=== PATIENT | male | born 1955 | race African-American/Black ===

== ENCOUNTER 2023-09-25 08:06 | Emergency (ER) | payer OTHER ==
[2023-09-25 08:20] VITALS: BP 108/74; PULSE 75; RESP 18; TEMP 98.7; BMI 17.8
[2023-09-25 09:18] LABS: HEMOGLOBIN 8.8 GM/dL (11.7-16.9); MCH 23.8 pg (25.7-33.7); MCHC 31.5 g/dl (32.0-35.9); MEAN CELL VOLUME 75.4 fl (80-96); PLATELET COUNT 410 10^3/uL (134-434); RBC 3.72 M/mm3 (4.00-5.60); RDW 22.3 % (11.9-15.9)
[2023-09-25 09:20] LABS: MEAN PLT VOLUME 5.8 fl (7.5-11.1)
[2023-09-25 09:48] LABS: POTASSIUM 3.7 mmol/L (3.5-5.1)
[2023-09-25 09:50] LABS: ALBUMIN 3.1 g/dl (3.4-5.0); BLOOD UREA NITROGEN 16.5 mg/dL (7-18); CALCIUM 8.5 mg/dL (8.5-10.1)
[2023-09-25 09:53] LABS: CREATININE 0.9 mg/dL (0.55-1.3)
[2023-09-25 09:55] LABS: BILIRUBIN,TOTAL 0.5 mg/dL (0.2-1); TOT PROT 5.9 g/dl (6.4-8.2)
[2023-09-25] MEDS ORDERED: MAG HYDROX/AL HYDROX/SIMETH 30 ML UNIT-DOSE CUP ONE (09:56)
[2023-09-25] MEDS: MAG HYDROX/AL HYDROX/SIMETH 30 ML UNIT-DOSE CUP PO ONE (09:58)
== END 2023-09-25 10:43 | disposition short-term general hospital (02) ==
LOC: JER 08:06
DX: R10.13 Epigastric pain (principal); F10.29 Alcohol dependence with unspecified alcohol-induced disorder
CPT/HCPCS: 36415; 80053; 84484; 85027; 93005; 93010; 99285-25

== ENCOUNTER 2023-09-25 12:07 | Inpatient (IN) | payer OTHER ==
[2023-09-25 12:57] VITALS: BMI 17.8
[2023-09-25] MEDS ORDERED: MAGNESIUM HYDROX 2400MG/30ML ORAL SUSPENSION 30 ML CUP PO PRN (14:27)
[2023-09-25] MEDS ORDERED: BENZOCAINE/MENTHOL (CHLORASEPTIC ) LOZENGE MM PRN (14:27)
[2023-09-25] MEDS ORDERED: LOPERAMIDE HCL 2 MG CAPSULE PO PRN (14:27)
[2023-09-25] MEDS ORDERED: POLYETHYLENE GLYCOL (HEALTHYLAX) 3350 17 GM PACKET PO PRN (14:27)
[2023-09-25] MEDS ORDERED: guaiFENesin 600 MG TABLET.ER (FP) PO PRN (14:27)
[2023-09-25] MEDS ORDERED: NALOXONE HCL (KLOXXADO) 8 MG SPRAY NS PRN (14:27)
[2023-09-25] MEDS ORDERED: ACETAMINOPHEN 325 MG TABLET (FP) PO PRN (14:27)
[2023-09-25] MEDS ORDERED: BENZONATATE 200 MG CAPSULE PO PRN (14:27)
[2023-09-25] MEDS ORDERED: MAG HYDROX/AL HYDROX/SIMETH 30 ML UNIT-DOSE CUP PO PRN (14:27)
[2023-09-25] MEDS ORDERED: NALOXONE HCL 0.4 MG/ML VIAL IM PRN (14:27)
[2023-09-25] MEDS ORDERED: NICOTINE POLACRILEX 2 MG LOZENGE BC PRN (14:27)
[2023-09-25] MEDS ORDERED: IBUPROFEN 400 MG TABLET (FP) PO PRN (14:27)
[2023-09-25] MEDS ORDERED: MECLIZINE HCL 25 MG TABLET (FP) PO PRN (17:05)
[2023-09-25] MEDS ORDERED: NITROGLYCERIN SUBLINGUAL 1/150 0.4 MG TAB SL PRN (17:05)
[2023-09-25] MEDS ORDERED: ALBUTEROL SO4 HFA INHALER IH PRN (17:05)
[2023-09-25] MEDS ORDERED: PANTOPRAZOLE 20 MG TABLET PO SCH (22:00)
[2023-09-25 22:14] LABS: EPI CELLS 5 /uL (0-25.1); HYALINE CASTS 37 /uL (0-3.1); URINE APPEARANCE CLOUDY; URINE BACTERIA >9,000 /uL (0-1359); URINE BILIRUBIN NEGATIVE (NEGATIVE); URINE COLOR YELLOW; URINE GLUCOSE (UA) NEGATIVE (NEGATIVE); URINE KETONE NEGATIVE (NEGATIVE); URINE LEUK ESTERASE 3+ (NEGATIVE); URINE NITRITE NEGATIVE (NEGATIVE); URINE PROTEIN TRACE (NEGATIVE); URINE RBC 11 /uL (0-23.9); URINE WBC 703 /uL (0-25.8)
[2023-09-25] MEDS: MELATONIN 5 MG TABLETS PO SCH (22:15)
[2023-09-25] MEDS: THIAMINE 100 MG TABLET PO SCH (22:15)
[2023-09-25] MEDS: PANTOPRAZOLE 20 MG TABLET PO SCH (22:15)
[2023-09-25 23:47] LABS: URINE CRYSTALS MODERATE /hpf
[2023-09-26] MEDS: FOLIC ACID T PO SCH (06:08)
[2023-09-26] MEDS: FERROUS SULFATE PO SCH (06:08)
[2023-09-26] MEDS: TAMSULOSIN HCL 0.4 MG CAP PO SCH (06:08)
[2023-09-26] MEDS: CHOLECALCIFEROL (VIT D3) 1,000 UNIT (25 MCG) TABLET PO SCH (06:08)
[2023-09-26] MEDS: [UNRECOGNIZED DRUG - OTHER] PO SCH (06:08)
[2023-09-26] MEDS: PRENATAL VITAMINS W/ FOLIC ACID TABLET (FP) PO SCH (09:40)
[2023-09-26] MEDS ORDERED: TAMSULOSIN HCL 0.4 MG CAP PO SCH (10:00)
[2023-09-26] MEDS ORDERED: CHOLECALCIFEROL (VIT D3) 1,000 UNIT (25 MCG) TABLET PO SCH (10:00)
[2023-09-26] MEDS ORDERED: FERROUS SULFATE PO SCH (10:00)
[2023-09-26] MEDS ORDERED: [UNRECOGNIZED DRUG - OTHER] PO SCH (10:00)
[2023-09-26] MEDS ORDERED: FOLIC ACID PO SCH (10:00)
[2023-09-26 11:50] LABS: HEMATOCRIT 26.9 % (35.4-49); HEMOGLOBIN 8.3 GM/dL (11.7-16.9); MCH 23.4 pg (25.7-33.7); MCHC 30.8 g/dl (32.0-35.9); MEAN PLT VOLUME 6.7 fl (7.5-11.1); PLATELET COUNT 417 10^3/uL (134-434); RBC 3.54 M/mm3 (4.00-5.60); WHITE BLOOD COUNT 7.1 K/mm3 (4.0-10.0)
[2023-09-26 11:53] LABS: POTASSIUM 4.4 mmol/L (3.5-5.1)
[2023-09-26 11:56] LABS: CALCIUM 8.4 mg/dL (8.5-10.1)
[2023-09-26 11:57] LABS: ALBUMIN 2.8 g/dl (3.4-5.0); BLOOD UREA NITROGEN 24.5 mg/dL (7-18)
[2023-09-26 12:00] LABS: CREATININE 1.1 mg/dL (0.55-1.3)
[2023-09-26 12:01] LABS: BILIRUBIN,TOTAL 0.2 mg/dL (0.2-1); TOT PROT 5.3 g/dl (6.4-8.2)
[2023-09-26] MEDS: IBUPROFEN 600 MG TABLET (FP) PO PRN (20:49)
[2023-09-27 06:01] VITALS: RESP 18
[2023-09-28] MEDS ORDERED: NICOTINE POLACRILEX 2 MG LOZENGE BC PRN (12:48)
[2023-09-28] MEDS: SULFAMETHOXAZOLE/TRIMETHOPRIM 800MG/160MG D.S. TABLET PO SCH (17:15)
[2023-09-29 06:50] VITALS: BP 147/83; PULSE 64; TEMP 98
[2023-09-29 12:01] LABS: EPI CELLS 1 /uL (0-25.1); HYALINE CASTS 2 /uL (0-3.1); URINE APPEARANCE CLEAR; URINE BACTERIA 258 /uL (0-1359); URINE BILIRUBIN NEGATIVE (NEGATIVE); URINE COLOR YELLOW; URINE GLUCOSE (UA) NEGATIVE (NEGATIVE); URINE KETONE NEGATIVE (NEGATIVE); URINE LEUK ESTERASE 2+ (NEGATIVE); URINE NITRITE NEGATIVE (NEGATIVE); URINE PROTEIN NEGATIVE (NEGATIVE); URINE RBC 3 /uL (0-23.9); URINE UROBILINOGEN 0.2 mg/dL (0.2-1.0); URINE WBC 174 /uL (0-25.8)
== END 2023-09-29 14:55 | disposition home or self-care (01) | DRG 895 ==
LOC: YASAS 12:07 → Y3NR 16:53 → Y5N 09-27 11:18
PROVIDERS: ADMIT Allergy & Immunology; ATTEND Psychiatry & Neurology Pain Medicine
PROC: HZ42ZZZ Group Counseling for Substance Abuse Treatment, Cognitive-Behavioral (ICD-10-PCS; principal; 2023-09-25)
DX: F10.20 Alcohol dependence, uncomplicated (principal); F14.20 Cocaine dependence, uncomplicated; N39.0 Urinary tract infection, site not specified; F17.210 Nicotine dependence, cigarettes, uncomplicated; D64.9 Anemia, unspecified; J45.909 Unspecified asthma, uncomplicated; K21.9 Gastro-esophageal reflux disease without esophagitis; M54.50 Low back pain, unspecified; G89.29 Other chronic pain; R26.89 Other abnormalities of gait and mobility; Z85.46 Personal history of malignant neoplasm of prostate; Z85.51 Personal history of malignant neoplasm of bladder; Z88.0 Allergy status to penicillin
CPT/HCPCS: 36415; 80053; 80305; 81003; 85027; 86780; 87086; 87811; 93005; 93010